=== PATIENT | male | born 1995 | race Asian ===

== ENCOUNTER 2021-07-23 18:34 | Emergency (ER) | payer OTHER ==
[~2021-07-23] VITALS: Ht 170.2 cm; Wt 113.4 kg
[2021-07-23 19:26] VITALS: BP 148/72; TEMP 97.8
== END 2021-07-23 19:26 | disposition home or self-care (01) ==
LOC: ED 18:34
DX: N61.0 Mastitis without abscess (principal)
CPT/HCPCS: 99282